=== PATIENT | female | born 1975 | race African-American/Black ===

== ENCOUNTER 2021-01-27 07:47 | Day surgery (SDC) | payer OTHER, SELFPAY ==
[~2021-01-27] VITALS: Ht 172.7 cm; Wt 100.2 kg
[2021-01-27] MEDS ORDERED: diphenhydrAMINE 50 MG/ML VIAL ONE (08:54)
[2021-01-27] MEDS ORDERED: fentaNYL citrate 0.05 MG/ML VIAL ONE ×2 (08:54)
[2021-01-27] MEDS ORDERED: MIDAZOLAM 5 MG/5 ML VIAL ONE (08:55)
[2021-01-27] MEDS ORDERED: LIDOCAINE 2% 100 MG/5 ML UJET TP ONE (08:55)
[2021-01-27] MEDS ORDERED: MIDAZOLAM 2 MG/2 ML VIAL IVP ONE (13:40)
[2021-01-27] MEDS ORDERED: fentaNYL citrate 0.05 MG/ML VIAL IVP ONE (13:40)
== END 2021-01-27 10:15 | disposition home or self-care (01) ==
LOC: MMU 07:47 → MDS 07:47
PROVIDERS: ATTEND Internal Medicine Gastroenterology
DX: K62.5 Hemorrhage of anus and rectum (principal); K62.1 Rectal polyp; J45.909 Unspecified asthma, uncomplicated; K59.00 Constipation, unspecified; Z79.899 Other long term (current) drug therapy; Z20.822 Contact with and (suspected) exposure to COVID-19; Z98.890 Other specified postprocedural states
CPT/HCPCS: 45385; 81025; 87426; J2250; J3010; J1200